=== PATIENT | female | born 1990 | race Hispanic/Latino ===

== ENCOUNTER 2025-02-26 14:25 | Outpatient (CLI) | payer OTHER ==
[2025-02-26 14:49] LABS: #Basophils 0.05 10x3/uL (0.0-0.2); #Eosinophils Less than 0.03 10x3/uL (0.0-0.7); #Monocytes 0.58 10x3/uL (0.11-0.59); #Neutrophils 5.89 10x3/uL (1.40-6.50); %Basophils 0.5 % (0.0-1.0); %Eosinophils 0.2 % (0.0-10.0); %Lymphocytes 32.9 % (21.0-51.0); %Monocytes 5.9 % (0.0-10.0); %Neutrophils 60.3 % (42.0-75.0); Hematocrit 38.7 % (36.0-47.0); Hemoglobin 13.3 g/dL (12.0-16.0); Mean Corpuscular Hemoglobin 30.2 pg (27.0-31.0); Mean Corpuscular Volume 88.0 fL (78.0-98.0); Platelet Count 261 10x3/uL (130-400); Red Blood Cell (RBC) Count 4.40 mill/uL (4.20-5.40); White Blood Cell (WBC) Count 9.77 10x3/uL (4.8-10.8)
[2025-02-26 14:58] LABS: BHCG - Serum Negative (NEGATIVE); Pregs Control Background? CLEAR/WHITE (CLR/WHITE); Pregs Control Bar Appear? YES (CONTROL BAR)
== END 2025-02-26 14:26 | disposition home or self-care (01) ==
LOC: EDBD → LABBT 14:25
PROVIDERS: ATTEND Orthopaedic Surgery
DX: Z01.812 Encounter for preprocedural laboratory examination (principal); M65.342 Trigger finger, left ring finger
CPT/HCPCS: 84703; 85025

== ENCOUNTER 2025-02-28 05:51 | Day surgery (SDC) | payer OTHER ==
[2025-02-26 14:38] VITALS: BMI 26.9
[2025-02-28] MEDS ORDERED: Lidocaine 1% PF 5 ML VIAL ONE (07:53)
[2025-02-28] MEDS ORDERED: fentaNYL PF 100 MCG/2 ML SYRINGE ONE (07:53)
[2025-02-28] MEDS ORDERED: Bupivacaine 0.25% HCL 30 ML VIAL ONE (08:26)
[2025-02-28] MEDS ORDERED: CEFAZOLIN 2 GM VIAL ONE (08:26)
[2025-02-28] MEDS ORDERED: PROPOFOL 200 MG/20 ML VIAL ONE (08:39)
[2025-02-28] MEDS ORDERED: Ondansetron PF 4 MG/2 ML Vial ONE (09:17)
== END 2025-02-28 11:13 | disposition home or self-care (01) ==
LOC: SDC 05:51 → EDBD 14:00
PROVIDERS: ATTEND Orthopaedic Surgery
PROC: 0LN80ZZ Release Left Hand Tendon, Open Approach (ICD-10-PCS; principal; 2025-02-28)
DX: M65.342 Trigger finger, left ring finger (principal)
CPT/HCPCS: A6223; J0665; J1100; J2250; J2405; J2704